=== PATIENT | female | born 1980 | race Caucasian/White ===

== ENCOUNTER 2017-03-17 19:57 | Emergency (ER) | payer BC ==
[2017-03-17 20:25] VITALS: BP 120/76
--- NOTE | 2017-03-17 21:06 | RAD ---
Indication: Bilateral knee pain after direct injury. 4 views of the right knee demonstrates no fracture. No joint effusion is noted. 4 views of left knee demonstrates no fracture. No joint effusion is noted. IMPRESSION: No fracture or joint effusion in either knee.
--- NOTE | 2017-03-17 21:08 | UC ---
Knee Pain HPI - HPI Summary HPI Summary: 36 female presents with complaints of bilateral knee pain that began around 8 pm after sustaining an injury. States she slipped on some water on kitchen floor landing on "all fours" b/l knees taking brunt of it. States pain is aching and worse with movement and weight bearing. She is able to walk. No medications, no other injuries. Did not hit her head. No wrist complaints. No PMHx other than plantar faciitis. No obvious swelling or bruising noted. no radiation of pain besides when the right knee has sharp pain during walking. minor abrasion to right anterior knee. Denies numbness/tingling. - History of Current Complaint Chief Complaint: UCLowerExtremity Stated Complaint: PT FELL INJURY BILATERAL KNEES Time Seen by Provider: 03/17/17 21:03 Hx Obtained From: Patient Hx Last Menstrual Period: ABLATION--2016 ?: No Onset/Duration: Sudden Onset Severity Initially: Moderate Severity Currently: Moderate Location Of Injury: b/l anterior knees Pain Intensity: 6 Pain Scale Used: 0-10 Numeric Character: Sharp, Aching Aggravating Factor(s): Movement, Weight Bearing Alleviating Factor(s): Rest Associated Signs And Symptoms: Positive: Negative Able to Bear Weight: Yes - Allergies/Home Medications Allergies/Adverse Reactions: Allergies Allergy/AdvReac Type Severity Reaction Status Date / Time Penicillins Allergy Severe throat Verified 03/17/17 20:25 swelling Prochlorperazine Allergy Severe eyes roll Verified 03/17/17 20:25 [From Compazine] back in head difficulty breathing Home Medications: Home Medications Nortriptyline CAP* [Pamelor CAP*] 10 mg PO BEDTIME 03/17/17 [History Confirmed 03/17/17] PMH/Surg Hx/FS Hx/Imm Hx - Additional Past Medical History Additional PMH: No DM, HTN, or asthma. PMHx: significant for plantar faciitis - Surgical History Surgical History: Yes Surgery Procedure, Year, and Place: VAGINAL ABLATION - Social History Alcohol Use: Occasionally Substance Use Type: None Smoking Status (MU): Never Smoked Tobacco Review of Systems Constitutional: Negative Skin: Other - minor abrasion to right knee, no bleeding Respiratory: Negative Cardiovascular: Negative Motor: Negative Musculoskeletal: Arthralgia, Myalgia - b/l knee Neurological: Negative All Other Systems Reviewed And Are Negative: Yes Physical Exam Triage Information Reviewed: Yes Appearance: Well-Appearing, No Pain Distress, Well-Nourished Vital Signs: Initial Vital Signs Temp 98.7 F 03/17/17 20:19 Pulse 80 03/17/17 20:19 Resp 18 03/17/17 20:19 BP 120/76 03/17/17 20:19 Pulse Ox 99 03/17/17 20:19 Vital Signs Reviewed: Yes Eyes: Positive: Conjunctiva Clear ENT: Positive: Hearing grossly normal Respiratory: Positive: Chest non-tender, Lungs clear, Normal breath sounds, No respiratory distress, No accessory muscle use Cardiovascular: Positive: RRR, No Murmur, Pulses Normal - 2+ pedal, Brisk Capillary Refill Musculoskeletal: Positive: Strength Intact, ROM Intact, No Edema, Other: - tender on palaption of anterior knees b/l over patella area Neurological: Positive: Alert - sensation intact Psychological Exam: Normal Skin: Positive: Other - no bruising, edema, crepitus, step off or obvious deformity Diagnostics - Radiology knee b/l Xray Interpretation: No Acute Changes - no joint effusion, fracture or dislocation of either knees noted Radiology Interpretation Completed By: Radiologist Knee Pain Course/Dx - Course Course Of Treatment: given aleve for pain. x-rays obtained and negative for fracture and dislocation. wrapped with rocky for compression. RICE and NSAID at home. Follow up with pcp if symptoms do not improve. aware of worsening signs and symptoms to watch out for. - Differential Dx/Diagnosis Differential Diagnosis/HQI/PQRI: Contusion, Dislocation, Fracture (Closed), Sprain, Strain Provider Diagnoses: b/l contusion knees Discharge - Discharge Plan Condition: Stable Disposition: HOME Patient Education Materials: Knee Pain (ED), Contusion in Adults (ED) Referrals: Meghann Montano MD [Primary Care Provider] - Additional Instructions: Take some aleve or ibuprofen for pain and discomfort. Ice, rest and elevate. Rocky bandages for support and compression. Triple antibiotic and keep clean and dry for scrapes. Follow up with PCP if symptoms persist or worsen.
[2017-03-17] MEDS ORDERED: Naproxen TAB* 250 MG PO ONE (21:14)
== END 2017-03-17 21:32 | disposition home or self-care (01) ==
LOC: UCCORT 19:57
DX: S80.02XA Contusion of left knee, initial encounter (principal); S80.01XA Contusion of right knee, initial encounter; S80.211A Abrasion, right knee, initial encounter; W01.0XXA Fall on same level from slipping, tripping and stumbling without subsequent striking against object, initial encounter; Y93.9 Activity, unspecified; Y92.9 Unspecified place or not applicable; Z88.0 Allergy status to penicillin; Z88.8 Allergy status to other drugs, medicaments and biological substances
CPT/HCPCS: 99212; A9270-GY; G0463

== ENCOUNTER 2017-06-23 10:35 | Emergency (ER) | payer BC ==
[2017-06-23 11:49] VITALS: BP 114/90
--- NOTE | 2017-06-23 11:58 | UC ---
Throat Pain/Nasal Morris HPI - HPI Summary HPI Summary: cold sx, cough, chills sore throat "eyelids hurt"---co workers at [employer] last week sick with similar sx - History of Current Complaint Chief Complaint: UCGeneralIllness Stated Complaint: COLD SYMPTOMS Time Seen by Provider: 06/23/17 11:47 Hx Obtained From: Patient Hx Last Menstrual Period: N/A ?: No Onset/Duration: Gradual Onset, Lasting Days - 3days, Still Present Severity: Moderate Pain Intensity: 6 Pain Scale Used: 0-10 Numeric Cough: Nonproductive Associated Signs & Symptoms: Positive: Fever - Allergies/Home Medications Allergies/Adverse Reactions: Allergies Allergy/AdvReac Type Severity Reaction Status Date / Time Penicillins Allergy Severe throat Verified 06/23/17 11:48 swelling Prochlorperazine Allergy Severe eyes roll Verified 06/23/17 11:48 [From Compazine] back in head difficulty breathing PMH/Surg Hx/FS Hx/Imm Hx Previously Healthy: Yes - Surgical History Surgical History: Yes Surgery Procedure, Year, and Place: UTERINE ABLATION - Family History Known Family History: Positive: None - Social History Occupation: Employed Full-time Lives: With Family Alcohol Use: Occasionally Substance Use Type: None Smoking Status (MU): Never Smoked Tobacco - Immunization History Most Recent Influenza Vaccination: CURRENT 2016/2017 Review of Systems Constitutional: Chills, Fatigue Skin: Negative Eyes: Negative ENT: Sore Throat, Nasal Discharge, Sinus Congestion Respiratory: Cough Cardiovascular: Negative Gastrointestinal: Negative Genitourinary: Negative Motor: Negative Neurovascular: Negative Musculoskeletal: Arthralgia, Myalgia Neurological: Negative Psychological: Negative Is Patient Immunocompromised?: No All Other Systems Reviewed And Are Negative: Yes Physical Exam Triage Information Reviewed: Yes Appearance: No Pain Distress, Well-Nourished, Ill-Appearing Vital Signs: Initial Vital Signs Temp 98.8 F 06/23/17 11:44 Pulse 88 06/23/17 11:44 Resp 18 06/23/17 11:44 BP 114/90 06/23/17 11:44 Pulse Ox 99 06/23/17 11:44 Vital Signs Reviewed: Yes Eye Exam: Normal Eyes: Positive: Conjunctiva Clear ENT Exam: Normal ENT: Positive: Normal ENT inspection, Hearing grossly normal, Pharynx normal, Nasal congestion, TMs normal, Uvula midline. Negative: Nasal drainage, Trismus , Muffled voice, Hoarse voice, Dental tenderness, Sinus tenderness Dental Exam: Normal Neck exam: Normal Neck: Positive: Supple, Nontender, No Lymphadenopathy Respiratory Exam: Normal Respiratory: Positive: Chest non-tender, Lungs clear, Normal breath sounds, No respiratory distress, No accessory muscle use Cardiovascular Exam: Normal Cardiovascular: Positive: RRR, No Murmur, Pulses Normal Musculoskeletal Exam: Normal Musculoskeletal: Positive: Strength Intact, ROM Intact, No Edema Neurological Exam: Normal Neurological: Positive: Alert, Muscle Tone Normal Psychological Exam: Normal Skin Exam: Normal Diagnostics - Laboratory Diagnostic Studies Completed/Ordered: RST and Influenza A/B (-) Throat Pain/Nasal Course/Dx - Course Assessment/Plan: increase fluids, tylenol, ibuprofen, follow with pcp prn - Differential Dx/Diagnosis Provider Diagnoses: Viral Syndrome, Uri Discharge - Discharge Plan Condition: Stable Disposition: HOME Patient Education Materials: Viral Syndrome (ED), Cold Symptoms (ED) Referrals: Meghann Montano MD [Primary Care Provider] - If Needed
== END 2017-06-23 12:30 | disposition home or self-care (01) ==
LOC: UCCORT 10:35
DX: B34.9 Viral infection, unspecified (principal); J06.9 Acute upper respiratory infection, unspecified; Z88.0 Allergy status to penicillin
CPT/HCPCS: 87502; 87651; 99211; G0463

== ENCOUNTER 2018-07-12 14:34 | Emergency (ER) | payer BC ==
--- NOTE | 2018-07-12 14:48 | UC ---
Ear Complaint HPI - HPI Summary HPI Summary: Patient is a 37 year old woman , who present today to the urgent care with right-sided dental/facial pain for past 2 weeks. She reports the pain is mainly in her upper jaw area, and now feels it's radiating to her ears now. Denies any pain in her eye. She felt feverish at home but did not take any temperature Denies any new soap, detergent , cosmetics, food or a possible exposure. No dysphagia Denies any cough chest pain or shortness of breath . Denies any abdominal pain , nausea or vomiting , diarrhea or constipation. She has been taking ibuprofen 800 is causing her some gastritis and heartburn She sees a dentist at [facility] and has an appointment in mid July. She is allergic to penicillins, has taken clindamycin before without any problems - History of Current Complaint Stated Complaint: RIGHT EAR PAIN Time Seen by Provider: 07/12/18 14:45 Hx Obtained From: Patient Hx Last Menstrual Period: N/A ?: No - post uterine ablation - Allergies/Home Medications Allergies/Adverse Reactions: Allergies Allergy/AdvReac Type Severity Reaction Status Date / Time Penicillins Allergy Swelling Verified 07/12/18 14:48 Of Face,Lips,& Throat prochlorperazine Allergy Difficulty Verified 07/12/18 14:48 [From Compazine] Breathing PMH/Surg Hx/FS Hx/Imm Hx - Additional Past Medical History Additional PMH: Anxiety for which she takes nortriptyline Previously Healthy: Yes - Surgical History Surgical History: Yes Surgery Procedure, Year, and Place: UTERINE ABLATION - Family History Known Family History: Positive: None - Social History Alcohol Use: Occasionally Substance Use Type: None Smoking Status (MU): Never Smoked Tobacco - Immunization History Most Recent Influenza Vaccination: CURRENT 2016/2017 Review of Systems All Other Systems Reviewed And Are Negative: Yes Constitutional: Positive: Other - [place] feverish but no temperature taken Skin: Positive: Negative Eyes: Positive: Negative ENT: Positive: Dental Pain, Ear Ache Respiratory: Positive: Negative Cardiovascular: Positive: Negative Gastrointestinal: Positive: Negative Genitourinary: Positive: Negative Motor: Positive: Negative Neurovascular: Positive: Negative Musculoskeletal: Positive: Negative Neurological: Positive: Negative Psychological: Positive: Negative Is Patient Immunocompromised?: No Physical Exam - Summary Physical Exam Summary: Physical Exam: Const: Appears well. No signs of apparent distress present. Alert and oriented x 3. Musculo: Walks with a normal gait. Head/Face: Atraumatic, normocephalic on inspection. Eyes: EOMI and PERRLA in both eyes. Conjunctivae clear. No discharge noted ENT: Hearing normal, TM normal appearing bilaterally . No erythema or drainage No pharyngeal erythema or exudates noted Right upper teeth including incisors premolar and molar have orthodontic hardware with with decay/ cavity and discoloration, No obvious gingival abscess noted. There is tenderness to palpation in these teeth. No obvious drainage noted Respiratory: Respirations are unlabored. Lungs clear to auscultation bilaterally, no wheezing , rhonchi or rales noted . CVS: Regular rate and Rhythm, S1S2 normal , no murmurs identified. Extremities: Peripheral circulation is grossly normal. Pulses 2+ Abdomen : Soft non tender , nondistended , Bowel sounds present . No guarding , rebound tenderness or rigidity noted. Skin: No lesions or rash located on the upper extremities or on the lower extremities. Neuro: Cranial nerves II to XII intact, motor and sensory intact. DTR Intact bilaterally. Mood is normal. Affect is normal. Triage Information Reviewed: Yes Vital Signs Reviewed: Yes Ear Complaint Course/Dx - Course Course Of Treatment: During the visit today, we discussed the findings and further plan. I will prescribe the antibiotics to the pharmacy . She will call her dentist tomorrow and schedule an early appointment for follow-up. Given her symptoms of gastritis due to ibuprofen, I will also prescribe omeprazole and Vicodin for pain control. Patient expressed understanding . - Differential Dx/Diagnosis Provider Diagnosis: Periodontal disease, Pulpitis, Gingivitis Discharge - Sign-Out/Discharge Documenting (check all that apply): Patient Departure All imaging exams completed and their final reports reviewed: No Studies - Discharge Plan Condition: Stable Disposition: HOME Prescriptions: Clindamycin Cap(NF) [Clindamycin Cap 300 mg Cap(NF)] 300 mg PO TID 10 Days #30 cap Hydrocodone/APAP 5/300 (NF) [Vicodin 5 MG/300 MG(NF)] 1 tab PO Q12H PRN 7 Days # 14 tab MDD 2 PRN Reason: Pain Omeprazole CAP* [Prilosec CAP* 20 MG] 20 mg PO DAILY 14 Days #14 cap. Patient Education Materials: Gastritis (ED), Gingivostomatitis (ED) Referrals: Swati Saldaña PA [Primary Care Provider] - 1 Week Additional Instructions: Please start taking the medication as prescribed to the pharmacy . She will call her dentist at [facility] and try to schedule an early appointment. Follow up with your primary care doctor in 1 week Return to Urgent care / ER if symptoms get worse. - Billing Disposition and Condition Condition: STABLE Disposition: Home
[2018-07-12 14:54] VITALS: BP 126/92
== END 2018-07-12 15:18 | disposition home or self-care (01) ==
LOC: UCCORT 14:34
DX: K05.6 Periodontal disease, unspecified (principal); K04.01 Reversible pulpitis; K05.10 Chronic gingivitis, plaque induced; Z88.8 Allergy status to other drugs, medicaments and biological substances; Z88.0 Allergy status to penicillin
CPT/HCPCS: 99212; G0463

== ENCOUNTER 2019-05-04 16:07 | Emergency (ER) | payer BC ==
--- NOTE | 2019-05-04 16:19 | UC ---
Lower Extremity/Ankle HPI - HPI Summary HPI Summary: 38 yo female presents with right great toe pain. She tells me that 2 nights ago she woke up with right base of great toe pain that has worsened. She has increased pain with weight bearing and ambulation. Pain has persisted since beginning. 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 Today pain has been severe and she cannot bear weight on her right foot/toes. Pain into midfoot and heel. No known injury. Denies numbness, tingling, fever, recent illness, calf pain, ankle pain, redness , swelling. - History of Current Complaint Stated Complaint: RIGHT FOOT INJURY Time Seen by Provider: 05/04/19 16:18 Hx Obtained From: Patient Hx Last Menstrual Period: N/A Onset/Duration: Sudden Onset Severity Initially: Moderate Severity Currently: Severe Pain Intensity: 9 Pain Scale Used: 0-10 Numeric - Allergies/Home Medications Allergies/Adverse Reactions: Allergies Allergy/AdvReac Type Severity Reaction Status Date / Time Penicillins Allergy Swelling Verified 05/04/19 16:16 Of Face,Lips,& Throat prochlorperazine Allergy Difficulty Verified 05/04/19 16:16 [From Compazine] Breathing PMH/Surg Hx/FS Hx/Imm Hx Psychological History: Anxiety - Surgical History Surgical History: Yes Surgery Procedure, Year, and Place: UTERINE ABLATION - Family History Known Family History: Positive: None, Non-Contributory - Social History Occupation: Employed Full-time Lives: With Family Alcohol Use: Occasionally Substance Use Type: None Smoking Status (MU): Never Smoked Tobacco Type: Cigarettes Amount Used/How Often: 2 cigarettes daily - Immunization History Most Recent Influenza Vaccination: CURRENT 2016/2017 Review of Systems All Other Systems Reviewed And Are Negative: No Constitutional: Positive: Negative Skin: Positive: Negative Respiratory: Positive: Negative Cardiovascular: Positive: Negative Neurovascular: Positive: Negative Musculoskeletal: Positive: Other: - Right foot pain Neurological: Positive: Negative Psychological: Positive: Negative Physical Exam - Summary Physical Exam Summary: GENERAL: NAD. WDWN. No pain distress. SKIN: No rashes, sores, lesions, or open wounds. CHEST: No accessory muscle use. Breathing comfortably and in no distress. CV: Pulses intact PT and DP. Cap refill <2seconds MSK: RIGHT FOOT: Moderate TTP about 1st MTP. FROM. Strength 5/5. No obvious bony deformities. Negative talar tilt. No increased laxity. Negative [place] test. No erythema, warmth, or edema. NEURO: Alert. Sensations intact and symmetric B/L LEs PSYCH: Age appropriate behavior. Triage Information Reviewed: Yes Vital Signs: Vital Signs: Temp Pulse Resp BP Pulse Ox 98.7 F 84 16 108/83 98 05/04/19 16:15 05/04/19 16:15 05/04/19 16:15 05/04/19 16:15 05/04/19 16:15 Vital Signs Reviewed: Yes Diagnostics - Radiology Foot XR Radiology Interpretation Completed By: Radiologist Summary of Radiographic Findings: IMPRESSION: NO ACUTE OSSEOUS INJURY. IF SYMPTOMS PERSIST, RECOMMEND REPEAT IMAGING. Lower Extremity Course/Dx - Course Course Of Treatment: XR as above. There was no ELSY and her pain is out of proportion to exam findings. Reviewing the XRs myself and with Dr. Grewal, there appears to be a fracture of the 1st MTP sesamoid bone and this correlates with pt's area of discomfort. She was placed in a CAM boot and advised to f/u with Orthopedics within 1 week for a recheck. She declined crutches today - Differential Dx/Diagnosis Provider Diagnosis: Fracture of sesamoid bone of foot, closed Discharge ED - Sign-Out/Discharge Documenting (check all that apply): Patient Departure All imaging exams completed and their final reports reviewed: Yes - Discharge Plan Condition: Stable Disposition: HOME Prescriptions: Naproxen [Naproxen 500 mg tab] 500 mg PO BID PRN #20 tablet PRN Reason: Pain - Mild Patient Education Materials: Toe Fracture (ED), Foot Fracture in Adults (ED) Forms: *Work Release Referrals: Swati Saldaña PA [Primary Care Provider] - Guillermo Pedraza MD [Medical Doctor] - 05/05/19 Additional Instructions: If you develop a fever, shortness of breath, chest pain, new or worsening symptoms - please call your PCP or go to the ED immediately. 1) Rest, Ice, and elevate your foot as much as possible 2) Use the CAM boot at all times 4) Please call Orthopedics at the number below to schedule an appointment within 1 week for further evaluation - Billing Disposition and Condition Condition: STABLE Disposition: Home
[2019-05-04 16:21] VITALS: BP 108/83
== END 2019-05-04 17:16 | disposition home or self-care (01) ==
LOC: UCCORT 16:07
DX: S92.811A Other fracture of right foot, initial encounter for closed fracture (principal); Z88.0 Allergy status to penicillin; Z88.8 Allergy status to other drugs, medicaments and biological substances; X58.XXXA Exposure to other specified factors, initial encounter; Y92.9 Unspecified place or not applicable
CPT/HCPCS: 99213; G0463

== ENCOUNTER 2019-09-20 09:06 | Emergency (ER) | payer BC ==
[2019-09-20 10:09] VITALS: BP 107/72
--- NOTE | 2019-09-20 10:20 | UC ---
General HPI - HPI Summary HPI Summary: Patient c/o flu like symptoms for the past 3 days. Chest tightness with a dry cough. Low grade temp: 100. Bodyaches, back pain and sore neck. Nauseated but no vomiting. no diarrhea or abdominal pain. Smokes about 1 cig/week. No hx of inhaler use in the past. No flu shot. Had pneumonia in February and is concerned she has that again Meds reviewed - History of Current Complaint Chief Complaint: UCRespiratory Stated Complaint: CHILLS/COUGH/CHEST CONGESTION Time Seen by Provider: 09/20/19 10:11 Hx Last Menstrual Period: N/A Pain Intensity: 5 - Allergy/Home Medications Allergies/Adverse Reactions: Allergies Allergy/AdvReac Type Severity Reaction Status Date / Time Penicillins Allergy Swelling Verified 09/20/19 10:07 Of Face,Lips,& Throat prochlorperazine Allergy Difficulty Verified 09/20/19 10:07 [From Compazine] Breathing Home Medications: Home Medications Venlafaxine EXT RELEASE CAP* [Effexor Xr CAP*] 300 mg PO DAILY 09/20/19 [ History Confirmed 09/20/19] PMH/Surg Hx/FS Hx/Imm Hx Previously Healthy: Yes - Surgical History Surgical History: Yes Surgery Procedure, Year, and Place: UTERINE ABLATION - Family History Known Family History: Positive: None, Non-Contributory - Social History Alcohol Use: Occasionally Substance Use Type: None Smoking Status (MU): Light Every Day Tobacco Smoker Type: Cigarettes Amount Used/How Often: 2 cigarettes daily - Immunization History Most Recent Influenza Vaccination: CURRENT 2016/2017 Review of Systems All Other Systems Reviewed And Are Negative: Yes Constitutional: Positive: Fever, Chills, Fatigue ENT: Positive: Sore Throat, Nasal Discharge Respiratory: Positive: Cough Physical Exam Triage Information Reviewed: Yes Appearance: Well-Appearing Vital Signs: Initial Vital Signs Temp 98.9 F 09/20/19 10:05 Pulse 81 09/20/19 10:05 Resp 14 09/20/19 10:05 BP 107/72 09/20/19 10:05 Pulse Ox 100 09/20/19 10:05 Eyes: Positive: Conjunctiva Clear ENT: Positive: Pharyngeal erythema, Nasal drainage, TMs normal Neck: Positive: Supple, Nontender Respiratory: Positive: Lungs clear, Normal breath sounds Cardiovascular: Positive: RRR, No Murmur Course/Dx - Course Course Of Treatment: This is a 39 yr old with flu-like symptoms Nontoxic appearing Flu: Negative Plan Your flu swab was negative Suspect a viral illness Continue supportive care Rest, fluids, ibuprofen as needed for pain/fever Recommend mucinex and sudafed for cough and congestion - take as directed If symptoms persist or worsen, recommend follow up with PCP or return to urgent care - Diagnoses Provider Diagnosis: Viral syndrome Discharge ED - Sign-Out/Discharge Documenting (check all that apply): Patient Departure All imaging exams completed and their final reports reviewed: No Studies - Discharge Plan Condition: Fair Disposition: HOME Patient Education Materials: Viral Syndrome (ED) Forms: *Work Release Referrals: Swati Saldaña PA [Primary Care Provider] - Additional Instructions: Your flu swab was negative Suspect a viral illness Continue supportive care Rest, fluids, ibuprofen as needed for pain/fever Recommend mucinex and sudafed for cough and congestion - take as directed If symptoms persist or worsen, recommend follow up with PCP or return to urgent care - Billing Disposition and Condition Condition: FAIR Disposition: Home
[2019-09-20 10:34] LABS: Influenza A Molecular Negative (Negative); Influenza B Molecular Negative (Negative)
== END 2019-09-20 10:46 | disposition home or self-care (01) ==
LOC: UCCORT 09:06
DX: B34.9 Viral infection, unspecified (principal); J02.9 Acute pharyngitis, unspecified; R05 Cough; R09.89 Other specified symptoms and signs involving the circulatory and respiratory systems; R53.83 Other fatigue; Z88.0 Allergy status to penicillin; Z88.8 Allergy status to other drugs, medicaments and biological substances
CPT/HCPCS: 99211; G0463